=== PATIENT | female | born 1955 | race Caucasian/White ===

== ENCOUNTER 2022-10-16 01:11 | Emergency (ER) | payer MEDICAID, MEDICARE ==
[2022-10-16 01:59] VITALS: BP 115/59; PULSE 68
[2022-10-16] MEDS ORDERED: Dexamethasone 4 MG/ML SDV PO ONE (02:37)
== END 2022-10-16 03:00 | disposition home or self-care (01) ==
LOC: JP.ED 01:11
DX: J02.9 Acute pharyngitis, unspecified (principal); Z88.1 Allergy status to other antibiotic agents; Z88.2 Allergy status to sulfonamides; Z88.8 Allergy status to other drugs, medicaments and biological substances
CPT/HCPCS: 99283; J8540